=== PATIENT | male | born 1995 | race Caucasian/White ===

== ENCOUNTER 2017-02-12 15:26 | Emergency (ER) | payer OTHER ==
[~2017-02-12] VITALS: Ht 180.3 cm; Wt 87.1 kg
--- NOTE | 2017-02-12 16:05 | NUR ---
PT WAS EVALUATED BY DR KIMBALL. PT WAS D/C TO HOME. NO BLEEDING. D/C INSTRUCTIONS GIVEN TO THE PT.
[2017-02-12 16:06] VITALS: BP 136/78
== END 2017-02-12 16:06 | disposition home or self-care (01) ==
LOC: ER 15:27
DX: S61.213A Laceration without foreign body of left middle finger without damage to nail, initial encounter (principal); W25.XXXA Contact with sharp glass, initial encounter; Y93.89 Activity, other specified; Y99.8 Other external cause status; Y92.89 Other specified places as the place of occurrence of the external cause
CPT/HCPCS: A4663

== ENCOUNTER 2017-02-13 12:58 | Emergency (ER) | payer SELFPAY ==
[~2017-02-13] VITALS: Ht 180.3 cm; Wt 87.1 kg
--- NOTE | 2017-02-13 13:07 | NUR ---
MSE DONE BY DR KIMBALL.
[2017-02-13] MEDS ORDERED: LIDOCAINE HCL 1% 20 ML VIAL IJ ONE (13:30)
--- NOTE | 2017-02-13 13:30 | NUR ---
Patient discharged to home in stable conditon. Written and verbal after care instructions given. Patient verbalizes understanding of instructions.
== END 2017-02-13 13:30 | disposition home or self-care (01) ==
LOC: ER 12:58
DX: S61.213A Laceration without foreign body of left middle finger without damage to nail, initial encounter (principal); X58.XXXA Exposure to other specified factors, initial encounter; Y93.89 Activity, other specified; Y99.8 Other external cause status; Y92.89 Other specified places as the place of occurrence of the external cause
CPT/HCPCS: A4663; J3490

== ENCOUNTER 2017-02-15 13:23 | Emergency (ER) | payer SELFPAY ==
[~2017-02-15] VITALS: Ht 182.9 cm; Wt 81.6 kg
== END 2017-02-15 13:42 | disposition home or self-care (01) ==
LOC: ER 13:23
DX: S61.213D Laceration without foreign body of left middle finger without damage to nail, subsequent encounter (principal); X58.XXXD Exposure to other specified factors, subsequent encounter; Y99.8 Other external cause status; Y92.89 Other specified places as the place of occurrence of the external cause
CPT/HCPCS: 99281; A4663

== ENCOUNTER 2017-02-20 14:16 | Emergency (ER) | payer OTHER ==
[~2017-02-20] VITALS: Ht 182.9 cm; Wt 81.6 kg
[2017-02-20] MEDS ORDERED: TDAP DIPH,PERTUSS,TET VAC/PF 0.5 ML DISP.SYRIN IM ONE ×2 (15:00→15:29)
[2017-02-20] MEDS ORDERED: NEOMY/BACITRA/POLYMYXIN B OINT UD PACKET TP ONE ×2 (15:45→15:57)
--- NOTE | 2017-02-20 15:56 | NUR ---
PT WAS EVALUATED BY DR TORREZ. PT WAS D/C TO HOME. D/C INSTRUCTIONS GIVEN TO THE PT.
[2017-02-20 16:01] VITALS: BP 128/74
== END 2017-02-20 16:02 | disposition home or self-care (01) ==
LOC: ER 14:16
DX: S61.213D Laceration without foreign body of left middle finger without damage to nail, subsequent encounter (principal); X58.XXXD Exposure to other specified factors, subsequent encounter; Y99.8 Other external cause status; Y92.89 Other specified places as the place of occurrence of the external cause
CPT/HCPCS: 73140; 90471; 90715; 99284; A4663

== ENCOUNTER 2017-08-07 18:30 | Emergency (ER) | payer BC, OTHER ==
[~2017-08-07] VITALS: Ht 180.3 cm; Wt 95.3 kg
[2017-08-07] MEDS ORDERED: ALBUTEROL SULFATE 2.5 MG/3 ML NEBU NEB ONE (19:00)
[2017-08-07] MEDS ORDERED: CEFTRIAXONE 1 G in IV DEXTROSE 5% 50 ML IV ONE (19:00)
[2017-08-07] MEDS ORDERED: predniSONE 20 MG TABLET PO ONE (19:45)
--- NOTE | 2017-08-07 20:00 | NUR ---
Patient discharged to home in stable conditon. Written and verbal after care instructions given. Patient verbalizes understanding of instructions.
[2017-08-07] MEDS ORDERED: predniSONE 50 MG TABLET ONE (20:03)
[2017-08-07] MEDS ORDERED: predniSONE 10 MG TABLET ONE (20:03)
== END 2017-08-07 20:02 | disposition home or self-care (01) ==
LOC: ER 18:40
DX: J40 Bronchitis, not specified as acute or chronic (principal)
CPT/HCPCS: 71010; A4663; J7512

== ENCOUNTER 2017-09-05 17:58 | Emergency (ER) | payer BC ==
[~2017-09-05] VITALS: Ht 180.3 cm; Wt 95.3 kg
--- NOTE | 2017-09-05 18:36 | NUR ---
at bedside performing MSE
--- NOTE | 2017-09-05 19:04 | NUR ---
REPORT GIVEN TO SILAS CASTANEDA. AWARE OF PT'S CURRENT CONDITION
--- NOTE | 2017-09-05 19:21 | NUR ---
Patient discharged to home in stable conditon. Written and verbal after care instructions given. Patient verbalizes understanding of instructions. PATIENT LEFT WITH STABLE GAIT.
[2017-09-05 19:22] VITALS: BP 120/85
== END 2017-09-05 19:22 | disposition home or self-care (01) ==
LOC: ER 17:59
DX: R05 Cough (principal); R07.89 Other chest pain; Z88.8 Allergy status to other drugs, medicaments and biological substances
CPT/HCPCS: 71020; A4663

== ENCOUNTER 2017-09-18 17:41 | Emergency (ER) | payer BC ==
[~2017-09-18] VITALS: Ht 180.3 cm; Wt 95.3 kg
--- NOTE | 2017-09-18 18:22 | NUR ---
PT IS IN ROOM #1B. DR CROFT EVALUATED THE PT.
[2017-09-18] MEDS ORDERED: IV NORMAL SALINE 1000 ML BAG IV ONE (19:45)
[2017-09-18 19:53] LABS: BASOPHILS # (AUTO) 0.1 K/uL (0.0-8.0); BASOPHILS % (AUTO) 0.8 % (0.0-2.0); CREATININE 1.1 mg/dL (0.6-1.3); EOSINOPHILS # (AUTO) 0.1 K/uL (0.0-0.7); HEMATOCRIT 46.1 % (36.7-47.1); LYMPHOCYTES % (AUTO) 17.6 % (20.5-74.5); MEAN CORPUSCULAR HEMOGLOBIN 32.5 uug (23.8-33.4); MEAN CORPUSCULAR HGB CONC 35 g/dL (32.5-36.3); MEAN CORPUSCULAR VOLUME 93.5 fL (73.0-96.2); MONOCYTES # (AUTO) 0.6 K/uL (2.0-10.0); MONOCYTES % (AUTO) 5.3 % (0-11); NEUTROPHILS # (AUTO) 8.5 K/uL (1.8-8.9); NEUTROPHILS % (AUTO) 75.3 % (31.5-64.5); PLATELET COUNT (AUTO) 260 K/uL (152-348); POTASSIUM 3.5 mmol/L (3.5-5.1); RED BLOOD CELL COUNT(AUTO) 4.93 MIL/uL (4.06-5.63); WHITE BLOOD COUNT (AUTO) 11.3 K/uL (3.6-10.2)
[2017-09-18 19:58] LABS: BILIRUBIN,TOTAL 0.6 mg/dL (0.2-1.0); TOTAL PROTEIN, SERUM 7.9 g/dL (6.4-8.2)
[2017-09-18 20:06] LABS: THYROID STIMULATING HORMONE 2.468 mIU/mL (0.358-3.740)
--- NOTE | 2017-09-18 21:28 | NUR ---
Removed IV intact, site okay, bandaged. Gave pt results, RX and d/c instructions, verbalized understanding.
[2017-09-18 21:37] VITALS: BP 150/93
== END 2017-09-18 21:38 | disposition home or self-care (01) ==
LOC: ER 17:41
DX: J40 Bronchitis, not specified as acute or chronic (principal); E86.0 Dehydration; Z88.8 Allergy status to other drugs, medicaments and biological substances
CPT/HCPCS: 36415; 71010; 80053; 84443; 84484; 85025; 93005; 96360; 99285; A4663; J7030; 70030-TC